=== PATIENT | female | born 1945 | race Caucasian/White ===

== ENCOUNTER 2019-11-15 06:02 | Observation (INO) | payer MEDICARE ==
[~2019-11-15] VITALS: Ht 163.8 cm; Wt 63.6 kg
[2019-11-15] MEDS ORDERED: SODIUM CHLORIDE 0.9% 1,000 ML IV SCH (06:21)
[2019-11-15 06:30] VITALS: BP 128/59
[2019-11-15] MEDS ORDERED: CEFAZOLIN PMX 1GM/50ML 50 ML IVPB ONE (06:30)
[2019-11-15] MEDS ORDERED: CHOL500051 PO (06:47)
[2019-11-15] MEDS ORDERED: MAGN100T6 PO (06:47)
[2019-11-15] MEDS ORDERED: RISE150T3 PO (06:47)
[2019-11-15] MEDS ORDERED: ESTR1VAG VG (06:47)
[2019-11-15] MEDS ORDERED: CALC-680 PO (06:47)
[2019-11-15] MEDS ORDERED: CYAN1TAB29 PO (06:47)
[2019-11-15] MEDS ORDERED: POTA20TA6 PO (06:47)
[2019-11-15] MEDS ORDERED: LION'S MANE PO (06:47)
[2019-11-15] MEDS ORDERED: [UNRECOGNIZED DRUG - OTHER] PO (06:47)
[2019-11-15] MEDS ORDERED: OMEG1CAP23 PO (06:47)
[2019-11-15] MEDS ORDERED: [UNRECOGNIZED DRUG - OTHER] PO (06:47)
[2019-11-15 06:51] LABS: BASOPHILS # (AUTO) 0.02 x10^3/uL (0-0.1); BASOPHILS % (AUTO) 0 % (0-1); EOSINOPHILS # (AUTO) 0.11 x10^3/uL (0-0.4); EOSINOPHILS % (AUTO) 2 % (1-7); LYMPHOCYTES % (AUTO) 35 % (22-44); MD NO; MEAN CORPUSCULAR HGB CONC 32.8 g/dL (32.4-35.8); MEAN CORPUSCULAR VOLUME 91.3 fL (80-100); MEAN PLATELET VOLUME 10.6 fL (7.4-10.4); MONOCYTES % (AUTO) 9 % (2-9); NEUTROPHILS # (AUTO) 3.21 x10^3/uL (1.8-6.8); NEUTROPHILS % (AUTO) 54 % (42-75); PLATELET COUNT 158 x10^3/uL (130-400); RED BLOOD COUNT 5.24 x10^6/uL (3.82-5.3)
[2019-11-15] MEDS ORDERED: PLEASE ENTER ALLERGIES MC SCH (07:00)
[2019-11-15 07:02] LABS: ANION GAP 7 mmol/L (5-15); CALCIUM 7.7 mg/dL (8.5-10.1); CHLORIDE 116 mmol/L (98-107); CREATININE 0.82 mg/dL (0.55-1.02)
[2019-11-15] MEDS ORDERED: LIDOCAINE 1%, 20ML ONE (08:08)
[2019-11-15] MEDS ORDERED: FENTANYL PF 100 MCG/2ML ONE (08:08)
[2019-11-15] MEDS ORDERED: MIDAZOLAM 1 MG/ML, 2ML ONE (08:08)
[2019-11-15] MEDS ORDERED: CEFAZOLIN PMX 1GM/50ML 50 ML ONE (08:08)
[2019-11-15] MEDS ORDERED: CEFAZOLIN 1,000 MG ONE (08:08)
[2019-11-15] MEDS ORDERED: ESTRADIOL VG SCH (09:30)
[2019-11-15] MEDS ORDERED: HOLD MEDICATION MC PRN (09:30)
[2019-11-15] MEDS: ACETAMINOPHEN 325 MG TABLET PO PRN ×2 (11:23→17:38)
[2019-11-15 13:53] VITALS: BP 105/66
[2019-11-15] MEDS: CALCIUM CITRATE 950 MG TABLET PO SCH ×2 (16:21→20:22)
[2019-11-15] MEDS: CEFAZOLIN PMX 1GM/50ML 50 ML IVPB SCH (16:52)
[2019-11-15 19:01] VITALS: BP 107/64
[2019-11-15] MEDS: SODIUM CHLORIDE FLUSH 10ML SYR IVF SCH (20:23)
[2019-11-16 01:13] VITALS: BP 124/68
[2019-11-16] MEDS: CEFAZOLIN PMX 1GM/50ML 50 ML IVPB SCH (01:15)
[2019-11-16] MEDS: ACETAMINOPHEN 325 MG TABLET PO PRN (06:21)
[2019-11-16 07:06] VITALS: BP 129/76
[2019-11-16] MEDS: SODIUM CHLORIDE FLUSH 10ML SYR IVF SCH (07:54)
[2019-11-16] MEDS: CALCIUM CITRATE 950 MG TABLET PO SCH (07:54)
[2019-11-16] MEDS ORDERED: MAGNESIUM CITRATE 150 MG PO SCH (09:00)
[2019-11-16] MEDS ORDERED: OMEGA-3/FISH OIL CAPSULE PO SCH (09:00)
[2019-11-16] MEDS ORDERED: CYANOCOBALAMIN 1,000 MCG TABLET PO SCH (09:00)
[2019-11-16] MEDS ORDERED: CHOLECALCIFEROL 1,000 UNIT TABLET PO SCH (09:00)
[2019-11-16] MEDS ORDERED: POTASSIUM CHLORIDE 10 MEQ TABLET.ER PO SCH (09:00)
[2019-11-16] MEDS ORDERED: ACET325T26 PO (10:02)
== END 2019-11-16 12:01 | disposition home or self-care (01) ==
LOC: CACL 06:02 → ORIP 09:16 → 5SO 09:31 → DCLOUNGE 11-16 11:53
PROVIDERS: ADMIT Internal Medicine Cardiovascular Disease; ATTEND Internal Medicine Cardiovascular Disease
DX: I49.5 Sick sinus syndrome (principal); I48.91 Unspecified atrial fibrillation; E05.91 Thyrotoxicosis, unspecified with thyrotoxic crisis or storm; K21.0 Gastro-esophageal reflux disease with esophagitis; Z79.899 Other long term (current) drug therapy
CPT/HCPCS: 33208; 36005; 36415; 71045; 71046; 80048; 85025; 96365; 96366; 99156; 99157; C1779; C1785; C1892; G0378; J0690; J2250; J3010; J3490; Q9967